=== PATIENT | male | born 1970 | race Two or more races ===

== ENCOUNTER 2017-02-19 17:55 | Emergency (ER) | payer OTHER ==
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
[~2017-02-19 17:55] MED LIST: CLEOCIN PO; DIABETA5 M1 PO; GLUCOTROL XL PO; TYLOX 5/500 CAP1 CAP PO; ZESTRIL5 MG PO
== END 2017-02-19 20:10 | disposition home or self-care (01) ==
LOC: CED 17:55
DX: M25.512 Pain in left shoulder (principal); E11.65 Type 2 diabetes mellitus with hyperglycemia; I10 Essential (primary) hypertension; F17.210 Nicotine dependence, cigarettes, uncomplicated; Z88.0 Allergy status to penicillin; V49.20XA Unspecified car occupant injured in collision with unspecified motor vehicles in nontraffic accident, initial encounter; Y92.488 Other paved roadways as the place of occurrence of the external cause
CPT/HCPCS: 73030; 73060; 82947; 99284

== ENCOUNTER 2017-04-17 17:41 | Inpatient (IN) | payer MEDICAID ==
--- NOTE | ~2017-04-17 | MR59 ---
[facility] A Service of [facility] RADIOLOGY TEXT RESULTS PATIENT: CLAUDIA VIRK LOCATION: C2A 229-01 : 74 UNIT #: [id number] AGE: [address]: Cristal Morgan MD SEX: M ORDER DR: [id number] [facility] [address] [facility]. [place], [place] [address] [id number] I MR#: [id number] Acc #: [id number] NAME: CLAUDIA VIRK : 1970 SEX: M STUDY DATE/TIME: 04/18/2017 1038 UNIT: C2A ROOM: 229 STUDY DESCRIPTION: MR Foot WWo Contrast Rt Attending Physician: Cristal Morgan M.D. Ordering Physician: Junito Baig D.P.M. MRI CENTER REPORT This report is preliminary unless electronic signature is present. EXAM MRI right forefoot without and with IV contrast 04/18/2017 HISTORY Order states MRI right foot with contrast stat. History sheet states right foot pain for 1 week with no known injury. Base of fifth toe with redness and swelling. Marked with gel cap. Abnormal x-ray and CT right foot 04/17/2017. No reported injury or foot surgery. Diabetic. COMPARISON Right foot radiographs 04/17/[address] of the right foot 04/17/2017. FINDINGS Plantar and lateral to the fifth MTP joint is 3.8 x 1.0 x 4.1 cm (craniocaudal by transverse by AP) cutaneous and subcutaneous lobulated fluid collection. The lateral portion appears to be cutaneous and somewhat blister-like. In the plantar aspect of the collection, it extends into the superficial subcutaneous space. The fluid collection contains gas predominantly in its dorsal distal aspect. In the deeper plantar subcutaneous space, plantar to the fifth MTP joint is a zone of enhancing subcutaneous cellulitis with a few small fluid pockets measuring 6 and 5 mm transversely. The deeper collection abuts the plantar aspect of the fifth MTP joint capsule but there is no definite joint effusion or septic arthritis. There is no definite septic tenosynovitis. There is no evidence of osteomyelitis. There is no radiopaque foreign body by CT or radiographs. No fracture or arthritic change is noted. IMPRESSION 1. 4.1 x 3.8 x 1.0 cm blister-like cutaneous and/or superficial STS. [facility] A Service of [facility] RADIOLOGY TEXT RESULTS PATIENT: CLAUDIA VIRK LOCATION: [facility] 229-01 : 74 UNIT #: [id number] AGE: [address]: Cristal Morgan MD SEX: M ORDER DR: subcutaneous fluid collection of the lateral and plantar aspect of the forefoot at the level of the fifth MTP joint. The collection contains gas and could reflect an abscess or uninfected fluid collection. In the deeper subcutaneous space plantar to the fifth metatarsal is a zone of enhancing cellulitis with 2 small subcutaneous collections measuring 5 6 mm respectively concerning for deep or abscesses. 2. There is no evidence of septic arthritis, osteomyelitis, or definite to septic tenosynovitis. 3. No fracture or foreign body is identified. 4. Report made available for signature 04-21-17. Dictated by... Lisandra Leigh M.D. THIS IS AN ELECTRONICALLY VERIFIED REPORT Lisandra Leigh M.D. at 04/21/2017 11:16 AM C/to TD: 04/19/2017 10:40 JOB #: [id number] MRI CENTER REPORT Page 1 of 1 COPY
--- NOTE | ~2017-04-17 | CR127 ---
[facility] A Service of [facility] RADIOLOGY TEXT RESULTS PATIENT: CLAUDIA VIRK LOCATION: C2 : 74 UNIT #: [id number] AGE: [address]: Cristal Morgan MD SEX: M ORDER DR: [id number] [place] [id number] [facility]. [place], [place] [address] [id number] I MR#: [id number] Acc #: [id number] NAME: CLAUDIA VIRK : 1970 SEX: M STUDY DATE/TIME: 04/17/2017 21:16 UNIT: [facility] ROOM: [facility] STUDY DESCRIPTION: CR Foot Complete Min 3 View Rt Attending Physician: Cristal Morgan M.D. Ordering Physician: Gage Rizo M.D. Primary Care Physician: No Primary Care Physician MEDICAL IMAGING REPORT This report is preliminary unless electronic signature is present EXAM Right foot, 04/17/2017. HISTORY 46-year-old male with right foot pain, swelling and redness along the lateral fifth toe beginning last night. No specific injury. COMPARISON Right foot, 02/01/2015. FINDINGS Three views of the right foot demonstrate extensive soft tissue swelling along the lateral aspect of the fifth metatarsophalangeal joint. There is associated soft tissue gas. No destructive osseous changes to suggest osteomyelitis. Vascular calcifications are noted. No evidence of acute fracture or dislocation. IMPRESSION Extensive soft tissue swelling along the lateral aspect of the fifth metatarsophalangeal joint with associated soft tissue gas. No destructive osseous changes to suggest osteomyelitis. Dictated by... Black Evans M.D. THIS IS AN ELECTRONICALLY VERIFIED REPORT Black Evans M.D. at 04/20/2017 7:22 AM IWONA/james TD: 04/18/2017 09:46 JOB #: [id number] [facility] A Service [facility] RADIOLOGY TEXT RESULTS PATIENT: CLAUDIA VIRK LOCATION: [place] : 74 UNIT #: [id number] AGE: [address]: Cristal Morgan MD SEX: M ORDER DR: MEDICAL IMAGING REPORT Page 1 of 1 COPY
--- NOTE | ~2017-04-17 | CT93 ---
[facility] A Service of [facility] RADIOLOGY TEXT RESULTS PATIENT: CLAUDIA VIRK LOCATION: C2A 229-01 : 74 UNIT #: [id number] AGE: [address]: Cristal Morgan MD SEX: M ORDER DR: [id number] [facility] [address] [facility]. [place], [place] [address] [id number] I MR#: [id number] Acc #: [id number] NAME: CLAUDIA VIRK : 1970 SEX: M STUDY DATE/TIME: 04/17/2017 22:12 UNIT: C2A ROOM: 229 STUDY DESCRIPTION: CT Lower Ext Rt W Cont Attending Physician: Cristal Morgan M.D. Ordering Physician: Gage Rizo M.D. Primary Care Physician: No Primary Care Physician MEDICAL IMAGING REPORT This report is preliminary unless electronic signature is present EXAM CT right foot with contrast, 04/17/2017. HISTORY 46-year-old male with right foot pain and swelling beginning today. COMPARISON Right foot x-rays, 04/17/2017. TECHNIQUE Helical scan performed through the right foot following administration of IV contrast. Multiplanar reformatted images. This CT exam was performed with one or more of the following radiation dose reduction techniques: automatic exposure control, adjustment of mA and/or kV according to patient size, and iterative reconstruction. FINDINGS There is extensive soft tissue swelling along the lateral and plantar aspect of the forefoot at the level of the fifth metatarsophalangeal joint. There is an associated collection of fluid and gas in the superficial soft tissues measuring 3.7 x 0.9 x 1.7 cm in size. This communicates with a slightly more ill-defined collection of peripherally enhancing fluid and gas along the plantar aspect of the fifth metatarsal head. The findings are concerning for developing abscesses. No definite joint effusion of the fifth metatarsophalangeal joint. No osseous destruction to suggest osteomyelitis by CT. There is evidence of a small focus of skin ulceration along the lateral and plantar aspect of the forefoot. IMPRESSION Small soft tissue ulceration along the lateral and plantar aspect of the forefoot at the level of the fifth metatarsophalangeal joint. This is STS. [facility] A Service of [facility] RADIOLOGY TEXT RESULTS PATIENT: CLAUDIA VIRK LOCATION: C2A 229-01 : 74 UNIT #: [id number] AGE: [address]: Cristal Morgan MD SEX: M ORDER DR: associated with moderate soft tissue cellulitis, as well as a superficial and plantar fluid collection which measures at least 3.7 x 0.9 x 1.7 cm in size. This is most concerning for a developing abscess with infection with a gas-forming organism. No definite communication with the fifth metatarsophalangeal joint. No osseous destruction to suggest osteomyelitis by CT. Dictated by... Black Evans M.D. THIS IS AN ELECTRONICALLY VERIFIED REPORT Black Evans M.D. at 04/20/2017 7:23 AM IWONA/james TD: 04/18/2017 11:34 JOB #: [id number] MEDICAL IMAGING REPORT Page 1 of 1 COPY
--- NOTE | ~2017-04-17 | A ---
[facility] Nutrition Therapy DATE: 04/20/17 Patient: CLAUDIA VIRK Physician: LIZ Address: [address] Room/Bed: [address] [place] [address], Zip: [place] [address] Admit Date: 04/17/17 Date of : 74 Height: 5 10 Weight: 175 79.37 NUTRITIONAL ASSESSMENT: REASON: CONSULT RE: DIET EDUCATION PT IS 46 Y.O. MALE ADMITTED FOR (R) FOOT CELLULITIS ABSCESS RD PROVIDED WRITTEN AND VERBAL CC DIET EDUCATION. 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 RD PROVIDED LIST OF FOODS TO AVOID/LIMIT AND FOODS TO EAT MORE OFTEN. RD EMPHASIZED IMPORTANCE OF LIMITING SUGAR-SWEETENED BEVERAGES AND PORTION CONTROL. PT REPORTS DRINKING DIET TEA DAILY. RD ENCOURAGED PT TO CUT BACK ON TEA INTAKE AND DRINK MORE WATER. PT DEMONSTRATED UNDERSTANDING OF THE TOPIC. PT REPORTED NO DIET QUESTIONS AT THIS TIME. RD TO REMAIN AVAILABLE RECOMMENDATIONS: 1. ENCOURAGE COMPLIANCE OF CURRENT DIET ORDER-CC RD WILL F/U PER PROTOCOL Respectfully, NOEMY MAYBERRY MS, RD, LD Food and Nutritional Services [facility] cc: client file
--- NOTE | ~2017-04-17 | HP ---
Unit #: [id number] #: [id number] Patient: CLAUDIA VIRK [id number] [address] [place], [place] [address] [id number] I MR#: [id number] NAME: CLAUDIA VIRK ROOM: 229 Age: 46 Sex: M Admission Date: 04/17/2017 : 1970 Attending Physician: Cristal Morgan M.D. Primary Care Physician: No Primary Care Physician HISTORY AND PHYSICAL CHIEF COMPLAINT Right foot redness, sore, and pain. DISCUSSION This is a 46-year-old gentleman with history of diabetes and hypertension. He presented to emergency room with chief complaining of having some redness and some pain and soreness on the right foot, which he said got worse over day. He came to ER. He underwent workup. White count was 14,000. He underwent x-ray of foot, which shows extensive soft tissue swelling around the lateral aspect of fifth metatarsal bone. Eventually, he underwent CT scan, which showed soft tissue ulceration at the base of fifth metatarsal and there is a fluid collection on the plantar aspect and eventually been admitted for right foot cellulitis and foot abscess. He denied chest pain. Denied nausea, vomiting, and fever. He states he has history of high blood pressure, but not been taking any medication. He denies headache, fever, chills, or other complaint. PAST MEDICAL HISTORY 1. History of diabetes. 2. Hypertension. PAST SURGICAL HISTORY History of cholecystectomy. SOCIAL HISTORY Patient is and lives with . Smokes one pack daily. Denies other illicit drug use. Denies any alcohol use. FAMILY HISTORY No history of diabetes or premature coronary artery disease. REVIEW OF SYSTEMS All review of systems negative, except history of present illness. MEDICATIONS FROM HOME He says he takes Metformin 500 b.i.d. PHYSICAL EXAMINATION GENERAL APPEARANCE: Middle-aged man lying in the bed comfortably. Currently not in any distress. He is alert, awake, and oriented x3. VITAL SIGNS: his current vitals are following: Temperature 99.2, heart rate 130, respiratory rate 16, blood pressure 175/84, and oxygen is 100% on room air. HEENT: Pupils equal and reactive to light and accommodation. Head is Unit #: [id number] #: [id number] Patient: CLAUDIA VIRK normocephalic and atraumatic. NECK: Supple. No JVD. HEART: S1 and S2. Regular rate and rhythm. LUNGS: Clear to auscultation bilaterally. No rhonchi. No wheezing. ABDOMEN: Soft, nontender, and nondistended. Bowel sounds positive. EXTREMITIES: Right foot: He has a positive (1) on the palmar aspect on the lateral aspect of the right foot around the fifth metatarsal he has a positive (2) , which has a fluctuance and there is also some redness and edema on the palmar aspect. DIAGNOSTIC STUDIES LABORATORY: Workup is following. Lactic acid level is 1. Sodium 130, potassium 3.7, chloride 95, glucose 274, BUN 10, and creatinine 0.4. LFTs within normal limits. White count 14, hemoglobin 14, hematocrit 41, and platelets 263. IMAGING: X-ray of right foot shows extensive soft tissue swelling around the lateral aspect of fifth metatarsal. CT scan of right foot shows soft tissue ulceration at the lateral aspect of fifth metatarsal. Also, there is some fluid collection on plantar aspect, 3.1 x 3 cm. ASSESSMENT AND PLAN 1. Right foot cellulitis with developing abscess. Will start the patient empirically on IV Zosyn and vancomycin. Ask podiatry to evaluate. 2. History of diabetes. 3. Hypertension. He said he is not on medication. Start patient on lisinopril and hydralazine on p.r.n. basis. 4. DVT prophylaxis. Will place the patient on SCDs. Dictated by Reece Patel/meghan TD: 04/18/2017 06:34 JOB #: [id number] HISTORY AND PHYSICAL Page 1 of 1 X X HISTORY AND PHYSICAL
--- NOTE | ~2017-04-17 | DS ---
Unit #: [id number] #: [id number] Patient: CLAUDIA VIRK [id number] [address] [place], [place] [address] [id number] I MR#: [id number] NAME: CLAUDIA VIRK ROOM: 229 Age: 46 Sex: M Admission Date: 04/17/2017 : 1970 Discharge Date: 04/20/2017 Attending Physician: Cristal Morgan M.D. Primary Care Physician: No Primary Care Physician DISCHARGE SUMMARY PRINCIPAL DIAGNOSES 1. Sepsis secondary to right fifth lateral foot Staph aureus abscess, status post incision and drainage. 2. Right latera foot cellulitis. 3. Diabetes mellitus type 2, uncontrolled with hemoglobin A1c of 11.2. 4. Hypertension, uncontrolled. CONSULTANTS Dr. Marcum - Podiatry. PROCEDURES 1. Bedside I and D of the foot which occurred without complication. 2. X-ray of the right foot on April 17, 2017, with soft tissue swelling along the lateral aspect of the fifth metatarsophalangeal joint with associated soft tissue gas. 3. CT of the right lower extremity with contrast on April 17, 2017, with a small soft tissue ulceration on the lateral and plantar aspect of the forefoot at the level of the fifth metatarsophalangeal joint. This was associated with cellulitis and abscess measuring 3.7 x 0.9 x 1.7 cm. 4. MRI of the foot which was negative for osteomyelitis. There was a 4.1 x 6.8 x 1 cm abscess with associated cellulitis. No evidence of septic arthritis. CLINICAL HISTORY/HOSPITAL COURSE Mr. Virk is a 46-year-old male with a history of uncontrolled diabetes who presents with swelling and redness of the right foot. Please refer to H and P for further details. Imaging studies in the ER and exam were consistent with abscess and associated cellulitis and patient was subsequently admitted. The patient was started on empiric vancomycin and Zosyn. Podiatry was consulted. The patient underwent bedside drainage of the abscess. Fortunately, MRI did not reveal any septic arthritis or any osteomyelitis. The patient is doing well postoperatively. He will be follow up with podiatry as an outpatient with instructions as outlined below. The patient does have significant uncontrolled diabetes. 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 I am going to place him on metformin and glipizide and patient will need close followup with his primary care provider. The patient also has uncontrolled hypertension. I placed him on lisinopril and Norvasc and blood pressure is significantly improved. Unit #: [id number] #: [id number] Patient: CLAUDIA VIRK The patient will be discharged home today with restrictions as noted and will follow up with podiatry and his primary care physician. DISCHARGE CONDITION Stable. DISCHARGE STATUS Discharge to home. DISCHARGE MEDICATIONS 1. Bactrim DS, one b.i.d. for seven days. 2. Norvasc 5 mg daily with one refill. 3. Lisinopril 40 mg daily with one refill. 4. Glipizide 10 mg p.o. b.i.d. with one refill. 5. Metformin 1000 mg b.i.d. with one refill. 6. Oxycodone 5 mg q.6 hours p.r.n. for pain, number given 25. DISCHARGE INSTRUCTIONS The patient was instructed to follow a constant carb diet. He has been instructed regarding diabetic diet. He should continue Accu-Cheks a.c. and h.s. at home. He can increase his activity as tolerated but is non-weight bearing on the right lower extremity. He should keep the dressing on his right foot clean, dry and intact. FOLLOWUP The patient will follow up in the Ortho-Podiatry clinic at [facility] at [address] [place] [address] on April 22, 2017, at 10 a.m. He will follow up with his primary care provider, Dr. Jean-Baptiste, in one week. Needs further monitoring of blood pressure and blood sugars. Time spent on discharge - 36 minutes. Dictated by... Cristal Morgan M.D. LANA/barbie TD: 04/21/2017 10:15 JOB #: [id number] DISCHARGE SUMMARY Page 1 of 1 X Cristal Morgan MD DISCHARGE SUMMARY
--- NOTE | ~2017-04-17 | CO ---
Unit #: [id number] #: [id number] Patient: CLAUDIA VIRK [id number] [address] [place], [place] [address] [id number] MR#: [id number] NAME: CLAUDIA VIRK ROOM: 229 Age: 46 Sex: M Admission Date: 04/17/2017 : 1970 Attending Physician: Cristal Morgan M.D. Consultation Date: 04/18/2017 CONSULTATION REPORT REQUESTING SERVICE Hospitalist. REASON FOR CONSULTATION Right foot abscess with cellulitis. HISTORY OF PRESENT ILLNESS Mr. Virk is a 46-year-old [place] gentleman with a history of diabetes and hypertension. He presented to the Emergency Room at [facility] on the with a complaint of pain and swelling to the right foot. He says he first noticed the discoloration and pain on evening and it increased overnight and he came into the hospital on Thursday. He has been admitted to the Hospitalist. X-rays were ordered at the time of consult. Currently, he denies any nausea, vomiting, fever, chills, shortness of breath, or chest pain. PAST MEDICAL HISTORY Significant for diabetes and hypertension. MEDICATIONS He takes metformin 500 mg b.i.d. ALLERGIES The patient has no known drug allergies. PAST SURGICAL HISTORY Significant for cholecystectomy. FAMILY HISTORY Noncontributory. SOCIAL HISTORY The patient is and lives with his . Smokes 1 pack of cigarettes daily. Denies alcohol and drug use. REVIEW OF SYSTEMS All review of systems is negative except for one's noted in the HPI. PHYSICAL EXAMINATION VITAL SIGNS: Currently temperature 99.2, heart rate 130, respiratory rate 16, blood pressure 135/84, and oxygen saturation is 100% on room air. GENERAL: He is alert, awake, and oriented x3. He is currently lying comfortably in bed. HEENT: His pupils are equal, round, and reactive to light and Unit #: [id number] #: [id number] Patient: CLAUDIA VIRK accommodation. HEART: Regular rate and rhythm. LUNGS: Clear to auscultation bilaterally. Nonlabored breathing. ABDOMEN: Soft, nontender, and nondistended. EXTREMITIES: Right lower extremity; there is a large fluctuant bullous to the plantar lateral aspect of his right foot sub first metatarsal. There is also hyperkeratotic tissue suggestive of callus to this area. He has a red streaking noted dorsally up to the level of the ankle as well as plantarly extending across his foot up to the medial malleolus. His pulses are palpable. His sensation is diminished. No apparent open lesions are visible. Upon debridement of the callus, there is a 5 mm x 5 mm annular ulcer, which is superficial in depth, does not probe to bone. There is purulent material that was expressed in the abscess. His range of motion and strength are within normal limits. RADIOGRAPHS A 3-views of the right foot were obtained, which demonstrate extensive soft tissue swelling at the plantar and lateral aspect of the fifth metatarsal head. There is no soft tissue emphysema or osseous involvement noted. ASSESSMENT A 46-year-old male with diabetes and peripheral neuropathy a diabetic foot ulceration, which is full thickness with superficial abscess and cellulitis to the right foot. PLAN Hyperkeratotic tissue was debrided with a #10 blade down to viable tissue, which was full thickness. Upon debridement, a 5 x 5 mm ulcer was noted and approximately 5 cc of foul smelling pus was expressed from the abscess. Also, a 2 cm incision was made over this bullous to be able to visualize and express any nonviable tissue. Next, the wound was copiously irrigated with 500 cc of normal saline. A Betadine wet-to-dry dressing was applied. Culture swabs x2 were obtained and sent for culture and sensitivity. The patient to remain nonweightbearing to the right lower extremity. MRI has been previously ordered and pending. We will await the MRI read to make a surgical versus non-op decision. Dictated by... Carlo Marcum M.D. for Kanika Vazquez/bellal TD: 04/20/2017 03:28 JOB #: [id number] Unit #: [id number] #: [id number] Patient: CLAUDIA VIRK CONSULTATION REPORT Page 1 of 1 X X CONSULTATION REPORT
[2017-04-17 21:02] LABS: BASOPHIL# 0.1 X10e3 (0-0.3); BASOPHIL% 0.8 % (0-2.5); EOSINOPHIL# 0.1 X10e3 (0-0.7); EOSINOPHIL% 0.7 % (0.0-7.0); HEMATOCRIT 41.1 % (38.0-50.0); HEMOGLOBIN 14.1 gm/dL (13.0-16.0); LYMPHOCYTE# 2.9 X10e3 (1.0-3.5); LYMPHOCYTE% 20.1 % (17.0-45.0); MEAN CELL VOLUME 86.8 FL (83-96); MEAN CORPUSCULAR HEMOGLOBIN 29.8 PG (28-34); MEAN CORPUSCULAR HGB CONC 34.4 g/dL (30-36); MEAN PLATELET VOLUME 7.8 FL (6.5-11.5); MONOCYTE# 1.3 X10e3 (0-1.0); MONOCYTE% 9.3 % (3.0-12.0); NEUTROPHIL# 9.8 X10e3 (1.5-7.1); NEUTROPHIL% 69.1 % (40-75); PLATELET COUNT 263 X10e3 (140-420); RED BLOOD COUNT 4.73 X10e (3.90-5.60); RED CELL DISTRIBUTION WIDTH 11.7 % (11.0-15.5); WHITE BLOOD COUNT 14.2 X10e3 (4.0-10.5)
[2017-04-17 21:05] LABS: DIFF IND NO
[2017-04-17 21:26] LABS: CALCIUM SERUM 9.2 mg/dL (8.4-10.2); CREATININE SERUM 0.4 mg/dL (0.6-1.4); GLOM FILT RATE Estimated 144.5 mL/min (>60); POTASSIUM 3.7 mmol/L (3.5-5.1); PROTEIN TOTAL SERUM 7.9 g/dL (6.0-8.3)
[2017-04-18 05:41] LABS: HEMATOCRIT 37.3 % (38.0-50.0); MEAN CELL VOLUME 86.2 FL (83-96); MEAN CORPUSCULAR HGB CONC 34.9 g/dL (30-36); MEAN PLATELET VOLUME 8.5 FL (6.5-11.5); RED BLOOD COUNT 4.32 X10e (3.90-5.60); RED CELL DISTRIBUTION WIDTH 11.4 % (11.0-15.5); WHITE BLOOD COUNT 10.8 X10e3 (4.0-10.5)
[2017-04-18 06:23] LABS: CALCIUM SERUM 8.7 mg/dL (8.4-10.2); CREATININE SERUM 0.5 mg/dL (0.6-1.4); GLOM FILT RATE Estimated 131.9 mL/min (>60); POTASSIUM 3.7 mmol/L (3.5-5.1)
[2017-04-19 06:03] LABS: HEMATOCRIT 37.2 % (38.0-50.0); HEMOGLOBIN 12.8 gm/dL (13.0-16.0); MEAN CELL VOLUME 86.3 FL (83-96); MEAN CORPUSCULAR HEMOGLOBIN 29.6 PG (28-34); MEAN CORPUSCULAR HGB CONC 34.3 g/dL (30-36); MEAN PLATELET VOLUME 7.8 FL (6.5-11.5); RED BLOOD COUNT 4.31 X10e (3.90-5.60); RED CELL DISTRIBUTION WIDTH 11.7 % (11.0-15.5); WHITE BLOOD COUNT 11.4 X10e3 (4.0-10.5)
[2017-04-19 06:56] LABS: CALCIUM SERUM 8.8 mg/dL (8.4-10.2); CREATININE SERUM 0.5 mg/dL (0.6-1.4); GLOM FILT RATE Estimated 131.9 mL/min (>60); POTASSIUM 3.6 mmol/L (3.5-5.1)
[2017-04-20 05:26] LABS: HEMATOCRIT 37.5 % (38.0-50.0); HEMOGLOBIN 12.8 gm/dL (13.0-16.0); MEAN CELL VOLUME 87.4 FL (83-96); MEAN CORPUSCULAR HEMOGLOBIN 29.8 PG (28-34); MEAN CORPUSCULAR HGB CONC 34.1 g/dL (30-36); MEAN PLATELET VOLUME 8.6 FL (6.5-11.5); RED BLOOD COUNT 4.3 X10e (3.90-5.60); RED CELL DISTRIBUTION WIDTH 11.3 % (11.0-15.5); WHITE BLOOD COUNT 11.6 X10e3 (4.0-10.5)
[2017-04-20] MEDS ORDERED: BACTRIM DS TAB1 EACH PO (13:32)
[2017-04-20] MEDS ORDERED: METFORMIN PO (13:33)
[2017-04-20] MEDS ORDERED: GLIPIZIDE10 MG PO (13:33)
[2017-04-20] MEDS ORDERED: ROXICODONE5 MG PO (13:42)
[2017-04-20] MEDS ORDERED: AMLODIPINE BESYL5 MG PO (13:43)
[2017-04-20] MEDS ORDERED: PRINIVIL40 MG PO (13:43)
== END 2017-04-20 14:30 | disposition home or self-care (01) | DRG 872 ==
LOC: CED 17:41 → CEDOF 23:40 → C2A 23:40 → CEDOF 23:45 → CED 23:45 → CEDOF 04-18 02:37 → C2A 04-18 02:37
PROVIDERS: Internal Medicine; Physician Assistant
PROC: 0Y9M0ZZ Drainage of Right Foot, Open Approach (ICD-10-PCS; principal; 2017-04-18)
DX: A41.9 Sepsis, unspecified organism (principal); E11.42 Type 2 diabetes mellitus with diabetic polyneuropathy; E11.621 Type 2 diabetes mellitus with foot ulcer; L02.611 Cutaneous abscess of right foot; L03.115 Cellulitis of right lower limb; E11.65 Type 2 diabetes mellitus with hyperglycemia; I10 Essential (primary) hypertension; Z79.84 Long term (current) use of oral hypoglycemic drugs; F17.210 Nicotine dependence, cigarettes, uncomplicated; Z90.49 Acquired absence of other specified parts of digestive tract; L97.519 Non-pressure chronic ulcer of other part of right foot with unspecified severity
CPT/HCPCS: 36415; 73630; 73701; 73720; 80048; 80053; 82947; 83036; 83605; 85025; 85027; 85652; 86140; 87040; 87070; 87075; 87077; 87186; 87205; 96361; 96365; 99285; A9577; J1815; J2270; J2543; J3370; Q9967